=== PATIENT | male | born 1980 | race Caucasian/White ===

== ENCOUNTER → 2018-03-15 11:34 | Outpatient (CLI) | payer BC, SELFPAY ==
--- NOTE | 2018-03-15 11:51 | XR_ITS ---
XR foot RT min 3V HISTORY: Pain following injury ITS.REASON: INJURY OF RIGHT FOOT ORDERING PHYSICIAN: Martine Lin PATIENT AGE: 37 years COMPARISON: None FINDINGS: No fracture or dislocation. No lytic or blastic change. There is normal mineralization.. The joint spaces are well-preserved. No significant degenerative/arthritic changes. No erosive changes evident. IMPRESSION: Negative, no acute finding
== END ==
PROVIDERS: PCP Nurse Practitioner Family; Visit Provider Nurse Practitioner Family
DX: S99.921A Unspecified injury of right foot, initial encounter (principal)
CPT/HCPCS: 73630

== ENCOUNTER → 2018-12-29 12:12 | Outpatient (CLI) | payer BC, SELFPAY ==
--- NOTE | 2018-12-29 12:17 | XR_ITS ---
EXAM: XR lumbar spine min 4V HISTORY: ITS.REASON: LOW BACK PAIN ORDERING PHYSICIAN: Martine iLn APRN PATIENT AGE: 38 years COMPARISON: None FINDINGS: Normal alignment. No fracture or dislocation. No lytic or blastic change. No significant degenerative change. The disc spaces are preserved. There is minimal lumbar curvature convex right. Vertebral hypertrophic changes are present at L4 and L5 vertebral body anteriorly. There is straightening of the lumbar lordosis. Small bone islands are present in the right femoral head IMPRESSION: Minimal degenerative change with straightening of lumbar lordosis which could be due to muscle spasm. No acute finding
== END ==
PROVIDERS: PCP Nurse Practitioner Family; Visit Provider Nurse Practitioner Family
DX: M54.5 Low back pain (principal)
CPT/HCPCS: 72110

== ENCOUNTER → 2020-03-16 12:37 | Outpatient (CLI) | payer BC, SELFPAY ==
[2020-03-17 17:02] LABS: Covid-19 Nasal PCR Sendout UK Not Detected
== END ==
PROVIDERS: PCP Nurse Practitioner Family; Visit Provider Nurse Practitioner Family
DX: Z03.818 Encounter for observation for suspected exposure to other biological agents ruled out (principal)
CPT/HCPCS: U0003

== ENCOUNTER → 2020-04-27 16:06 | Outpatient (CLI) | payer BC, SELFPAY | PROVIDERS: PCP Nurse Practitioner Family; Visit Provider Nurse Practitioner Family | DX: Z03.818 Encounter for observation for suspected exposure to other biological agents ruled out (principal) | CPT/HCPCS: U0003 ==

== ENCOUNTER → 2020-06-14 12:54 | Outpatient (CLI) | payer BC, SELFPAY | PROVIDERS: PCP Family Medicine; Visit Provider Family Medicine | DX: Z03.818 Encounter for observation for suspected exposure to other biological agents ruled out (principal) | CPT/HCPCS: U0003 ==